=== PATIENT | female | born 1950 ===

== ENCOUNTER 2024-08-16 13:55 | Outpatient (REF) | payer MEDICARE, SELFPAY ==
--- OUTSIDE RECORDS SUMMARY | 2024-08-16 16:43 | XMS_ITS | Encounter Summary ---
Author Organization [facility], Address [address] [place] [address] Phone Care Team Providers Care Intelligence Director Name Role Phone Jayne Elise MD Primary Care Provider +1- [phone] Encounter Details Date Type Department Care Team (Late st Contact Info) Description 09/10/2022 Documentation Only [facility], [address] [place] [address] Sylvie Chi Social History Tobacco Use Types Packs/Day Years Used Date Smoking Tobacco: Never Comments Unknown Sex and Gender Information Value Date Recorded Sex Assigned at Not on file Legal Sex Female 3:30 PM EST Gender Identity Not on file Sexual Orientation Not on file COVID-19 Exposure Response Date Recorded In the last 10 days, have yo u been in contact with someone who was confirmed or suspected to have Coronavirus/COVID-19? No / Unsure 09/10/2022 10:48 AM EDT documented as of this encounter Plan of Treatment Upcoming Encounters Date Type Department Care Team (Late st Contact Info) Description 09/14/2024 1:30 PM EDT [facility] [address] [place] [address] Waqar Ortega MD [address] [place] [phone] documented as of this encounter Visit Diagnoses Not on filedocumented in this encounter Care Teams Intelligence Director Relationship Specialty Start Date End Date Jayne Elise MD [address] [place] [phone] PCP - General Family Medicine 08/19/20 documented as of this encounter
--- OUTSIDE RECORDS SUMMARY | 2024-08-16 16:43 | XMS_ITS | Encounter Summary ---
Author Organization [facility], Address [address] [place] [address] Phone Care Team Providers Care Objects Conservator Name Role Phone Jayne Elise MD Primary Care Provider [phone]- [phone] Encounter Details Date Type Department Care Team (Late Contact Info) Description 03/11/2023 Documentation Only [facility] [address] [place] [address] Waqar Ortega MD [address] [place] [address] [place] [address] Social History Tobacco Use Types Packs/Day Years Used Date Smoking Tobacco: Never Comments Unknown Sex and Gender Information Value Date Recorded Sex Assigned at Not on file Legal Sex Female 3:30 PM EST Gender Identity Not on file Sexual Orientation Not on file documented as of this encounter Plan of Treatment Upcoming Encounters Date Type Department Care Team (Late st Contact Info) Description 09/14/2024 1:30 PM EDT Office Visit [facility] [address] [place] [phone] Waqar Ortega MD [address] [place] [address] [place] [address] documented as of this encounter Visit Diagnoses Not on filedocumented in this encounter Care Teams Objects Conservator Relationship Specialty Start Date End Date Jayne Elise MD [address] [place] [address] PCP - General Family Medicine 08/19/20 documented as of this encounter
--- OUTSIDE RECORDS SUMMARY | 2024-08-16 16:43 | XMS_ITS | Encounter Summary ---
Author Organization [facility] [place], Address [address] [place] [address] Phone Care Team Providers Care Communication Instructor Name Role Phone Jayne Elise MD Primary Care Provider [phone]- [phone] Encounter Details Date Type Department Care Team (Late st Contact Info) Description 08/27/2022 Documentation Only [facility] [address] [place] [address] Waqar Ortega MD [address] [place] [address] [place] [address] Social History Tobacco Use Types [...] Visit [facility] [address] [place] [phone] Waqar Ortega MD [address] [place] [address] [place] [address] documented as of this encounter Visit Diagnoses Not on filedocumented in this encounter Care Teams Communication Instructor Relationship Specialty Start Date End Date Jayne Elise MD [address] [place] [address] PCP - General Family Medicine 08/19/20 documented as of this encounter
--- OUTSIDE RECORDS SUMMARY | 2024-08-16 16:43 | XMS_ITS | Encounter Summary ---
Author Organization [facility] [place], Address [address] [place] [address] Phone Care Team Providers Care Pearl Diver Name Role Phone Jayne Elise MD Primary Care Provider [phone]- [phone] Encounter Details Date Type Department Care Team (Late st Contact Info) Description 03/16/2024 Documentation Only [facility] [address] [place] [address] Didi Kelly [address] [place] [phone] Social History Tobacco Use Types Packs/Day Years [...] Visit [facility] [address] [place] [phone] Waqar Ortega MD [address] [facility] [place] [phone] documented as of this encounter Visit Diagnoses Not on filedocumented in this encounter Care Teams Pearl Diver Relationship Specialty Start Date End Date Jayne Elise MD [address] [place] [address] PCP - General Family Medicine 08/19/20 documented as of this encounter
--- OUTSIDE RECORDS SUMMARY | 2024-08-16 16:43 | XMS_ITS | Encounter Summary ---
Author Organization [facility] [place], Address [address] [place] [address] Phone Care Team Providers Care Swahili Teacher Name Role Phone Jayne Elise MD Primary Care Provider [phone]- [phone] Reason for Visit * Reason Comments Med Refill Encounter Details Date Type Department Care Team (Late st Contact Info) Description 09/11/2023 Refill [facility] [address] [place] [phone] Waaqr Ortega MD [address] [place] [address] [place] [address] Social History Tobacco Use Types [...] Visit [facility] [address] [place] [phone] Waqar Ortega MD [address] [place] [address] [place] [phone] documented as of this encounter Visit Diagnoses Not on filedocumented in this encounter Care Teams Swahili Teacher Relationship Specialty Start Date End Date Jayne Elise MD [address] [place] [phone] PCP - General Family Medicine 08/19/20 documented as of this encounter
--- OUTSIDE RECORDS SUMMARY | 2024-08-16 16:43 | XMS_ITS | Encounter Summary ---
Author Organization [email or web address] [facility] Address [address] [place] [address] 7 [place] [address] Care Team Providers Care Wire Brush Operator Name Role Phone Saida Monteiro VARSHA Primary Care Provider [phone] Encounter Details Date Type Department Care Team (Latest Contact Info) Description 06/15/2018 Abstract [facility] CONVERSIONS Dental, Provider, DDS Social History Tobacco Use Types Packs/Day Years Used Date Smoking Tobacco: Never Assessed Comments Unknown Sex and Gender Information Value Date Recorded Sex Assigned at Female 04/13/2022 10:26 AM EDT Legal Sex Female 10:26 AM EDT Gender Identity Female 04/13/2022 10:26 AM EDT Sexual Orientation Straight 04/13/2022 10 :26 AM EDT documented as of this encounter Plan of Treatment Not on file documented as of this encounter Visit Diagnoses Not on filedocumented in this encounter Care Teams Wire Brush Operator Relationship Specialty Start Date End Date Saida Monteiro OD [address] [place] [address] PCP - General Optometry 12/09/16 06/20/23 documented as of this encounter
--- OUTSIDE RECORDS SUMMARY | 2024-08-16 16:43 | XMS_ITS | Encounter Summary ---
Author Organization [facility] [place], Address [address] [place] [address] Phone Care Team Providers Care Programming Instructor Name Role Phone Jayne Elise MD Primary Care Provider [phone]- [phone] Encounter Details Date Type Department Care Team (Late st Contact Info) Description 09/09/2023 Documentation Only [facility] [address] [place] [address] Didi Kelly [address] [place] [address] Social History Tobacco Use Types Packs/Day Years [...] Visit [facility] [address] [place] [phone] Waqar Ortega MD [address] [place] [address] [place] [address] documented as of this encounter Visit Diagnoses Not on filedocumented in this encounter Care Teams Programming Instructor Relationship Specialty Start Date End Date Jayne Elise MD [address] [place] [phone] PCP - General Family Medicine 08/19/20 documented as of this encounter
--- OUTSIDE RECORDS SUMMARY | 2024-08-16 16:43 | XMS_ITS | Encounter Summary ---
Author Organization [email or web address] [facility] Address [address] [place] [address] 7 [place] [address] Care Team Providers Care Relief Driller Name Role Phone Phi Monteirokimmy MADDOX Primary Care Provider [phone] Encounter Details Date Type Department Care Team (Latest Contact Info) Description 06/27/2019 Abstract [facility] CONVERSIONS Dental, Provider, DDS Social History Tobacco [...] on filedocumented in this encounter Care Teams Relief Driller Relationship Specialty Start Date End Date Saida Monteiro OD [address] [place] [address] PCP - General Optometry 12/09/16 06/20/23 documented as of this encounter
--- OUTSIDE RECORDS SUMMARY | 2024-08-16 16:43 | XMS_ITS | Clinical Summary ---
Author Organization [facility], Address [address] [address] Phone Care Team Providers Care Microfilm Equipment Inspector Name Role Phone Jayne Elise MD Primary Care Provider [phone] Allergies Active Allergy Reactions Criticality Noted Date Comments Aspirin Other (see comments) Medium 07/24/2021 Duloxetine Hcl Swelling High 12/11/2020 Dust Mite Extract Low 07/24/2021 Fluoxetine Swelling High 12/11/2020 Facial swelling Polyethylene Glycol 12/11/2020 bloating Molds & Smuts Low 07/24/2021 Medications buPROPion XL (WELLBUTRIN XL) 300 MG 24 hr tablet Take 300 mg by mouth 1 (one) time each day 1 Active cyclobenzaprine (FLEXERIL) 5 MG tablet Take 5 mg by mouth at night if needed 1 Active levothyroxine (SYNTHROID, LEVOTHROID) 50 MCG tablet Take 50 mcg by mouth daily Active pravastatin (PRAVACHOL) 40 MG tablet Take 40 mg by mouth 1 (one) time each day 1 Active Flovent HFA 110 MCG/ACT inhaler Inhale 1 puff 2 (two) times a day 1 Active albuterol HFA (PROVENTIL HFA;VENTOLIN HFA) 108 (90 Base) MCG/ACT inhaler INHALE 2 PUFFS EVERY 4 HOURS BY INHALATION ROUTE NEEDED 1 Active LORazepam (ATIVAN) 0.5 MG tablet Take 0.5 mg by mouth if needed for anxiety Active biotin 1000 MCG tablet Take 1,000 mcg by mouth 1 (one) time each day Active raloxifene (EVISTA) 60 MG tablet Take 60 mg by mouth daily 1 Active famotidine (PEPCID) 20 MG tablet Take 20 mg by mouth in the morning and 20 mg in the evening. 2 Active Pulmicort Flexhaler 180 MCG/ACT inhaler INHALE 1 PUFF TWICE A DAY BY INHALATION ROUTE. 2 Active donepezil (ARICEPT) 10 MG tablet Take 10 mg by mouth 1 (one) time each day For 30 days 3 Active sertraline (ZOLOFT) 100 MG tablet TAKE 1 & 1/2 TABLET BY MOUTH EVERY DAY FOR 90 DAYS 2 Active omeprazole (PriLOSEC) [address] capsule Take by mouth 1 (one) time each day 4 Active calcitriol (ROCALTROL) 0.5 MCG capsule Take 1 capsule (0.5 mcg total) by mouth per week 12 capsule 3 4 01/17/20 25 Active lisinopril 5 MG tablet Take 1 tablet (5 mg total) by mouth 1 (one) time each day 90 tablet 3 4 02/21/20 25 Active Active Problems Problem Noted Date Diagnosed Date Renal osteodystrophy 09/10/2022 Essential (primary) hypertension 12/13/2020 [facility] use of nonsteroidal anti-inflammatorie s 12/13/2020 Stage 3b chronic kidney disease 12/12/2020 Resolved Problems Problem Noted Date Diagnosed Date Resolved Date Osteoarthritis of hip 10/18/20182020 Overview (12/12/2020): Last Assessment & Plan: Reviewed x-ray indicating a moderate degree of osteoarthritis. It is quite symptomatic and getting more painful. She will have surgery at [facility] next month. Age-related osteoporosis wit hout current pathological fracture 04/20/2018 12/12/2020 Overview (12/12/2020): Last Assessment & Plan: Fall and fracture prevention strategies were discussed. She will remain on current medication. I will review her bone densitometry and get back to her by phone call. Previous bone density was reviewed in detail. Results for orders placed or performed during the hospital encounter of 01/04/19 (from the past 34359 hour(s)) DXA Monitoring Narrative This is a 68-year-old postmenopausal female with a documented history of osteoporosis. She is not on estrogen replacement therapy and does not take calcium supplements. She describes a perceived height loss of approximately 1 inch. Evaluation of the lumbar spine and hips was performed and felt to be technically adequate, with comparison made to the prior study of 11/24/2016. Total bone mineral density in the L1-L4 vertebral bodies was calculated at 0.732 gm/cm2 with a T-score of -2.9 and Z-score of -0.9, falling within the WHO classification of osteoporosis, representing an interval decrease of 3.1% since 2017. Total bone mineral density in the right hip was calculated at 0.806 gm/cm2 with a T-score of -1.1 and Z-score of 0.1 falling within the WHO classification of osteopenia, without significant interval change from 2017. Total bone mineral density in the left hip was calculated at 0.778 gm/cm2 with a T-score of -1.3 and Z- score of -0.1 falling within the WHO classification of osteopenia, representing an interval decrease of 3.6% since 2017. Impression Osteoporosis with interval decrease in lumbar spine and left hip bone mineral density since 2017. 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 If when necessary there is an acute painful flare I can use intra-articular steroids but in the meantime she will approach this using rare hydrocodone and the diclofenac gel when needed. Cervical spondylosis without myelopathy 04/20/2017 12/12/2020 Overview (12/12/2020): Last Assessment & Plan: Rather severe multilevel cervical spondylosis with pain and restriction in range of motion but no long track signs or signs of radiculopathy. The use of diclofenac gel on occasion, low-dose meloxicam daily, and occasional Tylenol are quite helpful along with heat applications. She will call me if this worsens. We spoke about appropriate cervical pillow as well as strengthening program for the paracervical musculature. Fibromyalgia 04/20/2017 12/12/2020 Overview (12/12/2020): Last Assessment & Plan: Continues with chronic pain poor sleep and generalized stiffness without inflammatory arthritis but with diffuse axial and appendicular osteoarthritis. Fibromyalgia syndrome was discussed in detail. She will remain on vitamin D supplementation, Wellbutrin, cyclobenzaprine and good sleep hygiene and regular low impact cardiovascular exercise. All questions were answered. Sacroiliac disorder 04/20/2017 12/13/19 21 Overview (12/12/2020): Last Assessment & Plan: Sacral support belt is recommended as well as continuation of the cyclobenzaprine, diclofenac, and meloxicam. Recent lab work done at primary care physician will be checked. Social History Tobacco Use Types Packs/Day Years Used Date Smoking Tobacco: Never Comments Unknown Sex and Gender Information Value Date Recorded Sex Assigned at Not on file Legal Sex Female 3:30 PM EST Gender Identity Not on file Sexual Orientation Not on file Plan of Treatment Upcoming Encounters Date Type Department Care Team (Late st Contact Info) Description 09/14/2024 1:30 PM EDT Office Visit [facility] [place], [address] [place] [address] Waqar Ortega MD [address] [facility] [place] [phone] Health Maintenance Due Date Last Done Comments Breast Cancer Screening 1951 Colorectal Cancer Screening: Annual FOBT 2000 Colorectal Cancer Screening: Colonoscopy 2000 Colorectal Cancer Screening: Sigmoidoscopy 2000 Influenza Vaccine (#1) 2024 9, 04/06/2018, 03/30/2017, Additional history exists Pneumococcal Vaccine: 65+ Years Completed 08/11/2017, 08/10/2016 Hepatitis B Vaccine Aged Out No longe r eligible based on patient's age to complete this topic Insurance MEDICAID [place] [employer]ET[place] Care Teams Microfilm Equipment Inspector Relationship Specialty Start Date End Date Jayne Elise MD [address] [place] [address] PCP - General Family Medicine 08/19/20
--- OUTSIDE RECORDS SUMMARY | 2024-08-16 16:43 | XMS_ITS | Clinical Summary ---
Author Organization [facility] Address [address] [place] [address] Care Team Providers Care School Photographs Detailer Name Role Phone Unavailable Primary Care Provider Unavailabl e Social History Tobacco Use Types Packs/Day Years Used Date Smoking Tobacco: Never Assessed Comments Unknown Sex and Gender Information Value Date Recorded Sex Assigned at Not on file Legal Sex Female 5:12 AM EST Gender Identity Not on file Sexual Orientation Not on file Plan of Treatment Not on file
--- OUTSIDE RECORDS SUMMARY | 2024-08-16 16:43 | XMS_ITS | Encounter Summary ---
Author Organization [facility] [place], Address [address] [place] [address] Phone Care Team Providers Care News Internship Name Role Phone Jayne Elise MD Primary Care Provider [phone] Encounter Details Date Type Department Care Team (Late st Contact Info) Description 03/11/2023 Documentation Only [facility] [address] [place] [address] Waqar Ortega MD [address] [place] [address] [place] [address] Social History Tobacco Use Types [...] Visit [facility] [address] [place] [phone] Waqar Ortega MD [address] [place] [address] [place] [address] documented as of this encounter Visit Diagnoses Not on filedocumented in this encounter Care Teams News Internship Relationship Specialty Start Date End Date Jayne Elise MD [address] [place] [address] PCP - General Family Medicine 08/19/20 documented as of this encounter
--- OUTSIDE RECORDS SUMMARY | 2024-08-16 16:43 | XMS_ITS | Clinical Summary ---
Author Organization [employer] [facility] Address [address] [place] [address] [address] [place] [address] Care Team Providers Care Spinning Frame Cleaner Name Role Phone Unavailable Primary Care Provider Unavailabl e Social History Tobacco Use Types Packs/Day Years Used Date Smoking Tobacco: Never Assessed Comments Unknown Sex and Gender Information Value Date Recorded Sex Assigned at Female 04/13/2022 10:26 AM EDT Legal Sex Female 10:26 AM EDT Gender Identity Female 04/13/2022 10:26 AM EDT Sexual Orientation Straight 04/13/2022 10 :26 AM EDT Last Filed Vital Signs Vital Sign Reading Time Taken Comments Blood Pressure 100/60 06/27/2019 12:01 AM EST Pulse 78 06/27/2019 12:01 AM EST Temperature - - Respiratory Rate - - Oxygen Saturation - - Inhaled Oxygen Concentration - - Weight - - Height - - Body Mass Index - - Plan of Treatment Health Maintenance Due Date Last Done Comments CT Colonography 1951 Colonoscopy 1951 Colorectal Cancer Screening 1951 Depression Screening 1951 FIT DNA/Cologuard 1951 FIT 1951 FOBT 1951 Sigmoidoscopy 1951 Alcohol/Substance Use Screening 1963 Tobacco Screening 1963 DTaP/Tdap/Td Vaccines (1 - Tdap) 1970 Mammogram 1991 Pneumococcal Vaccine: 50+ Ye ars (1 of 1 - PCV) 2001 Zoster Vaccines (1 of 2) 2001 COVID-19 Vaccine ( - 2023-2 5 season) 2024 Influenza Vaccine (#1) 2024 RSV Patients and Pa tients Aged 60 years or older (1 - 1-dose 75+ series) 2026 HIB Vaccines Aged Out No longer eligi ble based on patient's age to complete this topic HPV Vaccines Aged Out No longer eligi ble based on patient's age to complete this topic Hepatitis A Vaccines Aged Out No long er eligible based on patient's age to complete this topic Hepatitis B Vaccines Aged Out No long er eligible based on patient's age to complete this topic IPV Vaccines Aged Out No longer eligi ble based on patient's age to complete this topic Meningococcal Vaccine Aged Out No sara caridad eligible based on patient's age to complete this topic RSV under 20 months Aged Out No longe r eligible based on patient's age to complete this topic Rotavirus Vaccines Aged Out No longer eligible based on patient's age to complete this topic
--- OUTSIDE RECORDS SUMMARY | 2024-08-16 16:43 | XMS_ITS | Encounter Summary ---
Author Organization [facility] [place], Address [address] [place] [address] Phone Care Team Providers Care Staff Software Engineer Name Role Phone Jayne Elise MD Primary Care Provider [phone]- [phone] Encounter Details Date Type Department Care Team (Late st Contact Info) Description 03/11/2023 Documentation Only [facility] [address] [place] [address] Waqar Ortega MD [address] [place] [address] [place] [address] Social History Tobacco Use Types [...] Visit [facility] [address] [place] [phone] Waqar Ortega MD [address] [place] [address] [place] [address] documented as of this encounter Visit Diagnoses Not on filedocumented in this encounter Care Teams Staff Software Engineer Relationship Specialty Start Date End Date Jayne Elise MD [address] [place] [address] PCP - General Family Medicine 08/19/20 documented as of this encounter
--- OUTSIDE RECORDS SUMMARY | 2024-08-16 16:43 | XMS_ITS | Encounter Summary ---
Author Organization [facility] [place], Address [address] [place] [address] Phone Care Team Providers Care Pocketed Spring Assembler Name Role Phone Jayne Elise MD Primary Care Provider +1- [phone] Encounter Details Date Type Department Care Team (Late st Contact Info) Description 03/11/2023 Documentation Only [facility] [address] [place] [address] Waqar Ortega MD [address] [place] [address] [place] [address] Social History Tobacco Use Types [...] Visit [facility] [address] [place] [phone] Waqar Ortega MD [address] [place] [address] [place] [address] documented as of this encounter Visit Diagnoses Not on filedocumented in this encounter Care Teams Pocketed Spring Assembler Relationship Specialty Start Date End Date Jayne Elise MD [address] [place] [address] PCP - General Family Medicine 08/19/20 documented as of this encounter
== END 2024-08-16 13:56 | disposition home or self-care (01) ==
LOC: HO.SH 13:55
PROVIDERS: Visit Provider Family Medicine
DX: Z01.118 Encounter for examination of ears and hearing with other abnormal findings (principal); H90.3 Sensorineural hearing loss, bilateral
CPT/HCPCS: 92557